=== PATIENT | male | born 1965 | race Caucasian/White ===

== ENCOUNTER 2019-09-22 03:49 | Emergency (ER) | payer BC ==
[~2019-09-22] VITALS: Ht 177.8 cm; Wt 102.1 kg
[~2019-09-22 03:49] MED LIST: PREDNISONE20 M1 PO
[2019-09-22] MEDS ORDERED: Tobrex Ophth S2.5 ML OPH (04:35)
== END 2019-09-22 04:51 | disposition home or self-care (01) ==
LOC: ED 03:49
DX: H10.13 Acute atopic conjunctivitis, bilateral (principal); Z79.899 Other long term (current) drug therapy

== ENCOUNTER 2022-08-09 05:22 | Emergency (ER) | payer BC ==
[~2022-08-09] VITALS: Ht 177.8 cm; Wt 99.8 kg
[~2022-08-09 05:22] MED LIST changes: +Tobrex Ophth S2.5 ML OPH
[2022-08-09 05:59] LABS: BASO % 0.6 % (0.0-1.0); EOS # 0.1 10*3/uL (0.0-0.4); EOS % 1.6 % (1.0-4.0); LYMPH # 2.6 10*3/uL (1.3-4.4); LYMPH % 38.7 % (27.0-41.0); MEAN CELL VOLUME 87.8 fl (80.0-94.0); MEAN CORPUSCULAR HGB 31.1 pg (27.0-31.0); MEAN CORPUSCULAR HGB CONC 35.4 g/dl (33.0-37.0); MEAN PLATELET VOLUME 9.3 fl (9.6-12.3); MONO # 0.6 10*3/uL (0.1-1.0); NEUT # 3.3 10*3/uL (2.3-7.9); NEUT % 49.1 % (47.0-73.0); PLATELET COUNT AUTOMATED 282 10*3/uL (130-400); RED BLOOD COUNT 4.44 10*6/uL (4.50-5.90); RED CELL DISTRI WIDTH 12.1 % (0-14.5); WHITE BLOOD COUNT 6.8 10*3/uL (4.8-10.8)
[2022-08-09 06:00] LABS: BILIRUBIN Negative (Negative); BLOOD 2+ (Negative); CLARITY Clear (Clear); COLOR Yellow (Yellow); GLUCOSE 3+ (Negative); KETONE Trace (Negative); LEUKO ESTERASE Negative (Negative); NITRITE Negative (Negative); SPECIFIC GRAVITY >= 1.030 (1.001-1.030)
[2022-08-09 06:08] LABS: BUN 13 mg/dl (7-24); CHLORIDE 104 mmol/L (98-107); CREATININE 1.06 mg/dL (0.70-1.30); POTASSIUM 3.4 mmol/L (3.5-5.1); SODIUM 139 mmol/L (136-145)
[2022-08-09 06:15] LABS: BACTERIA TRACE; EPITHELIAL CELLS 0-2; MUCOUS 1+
[2022-08-09] MEDS ORDERED: FLOMAX0.4 MG PO (11:11)
[2022-08-09] MEDS ORDERED: ONDANSETRON4 MG SL (11:11)
[2022-08-09] MEDS ORDERED: Motrin,Rufen800 MG PO (11:11)
== END 2022-08-09 11:22 | disposition home or self-care (01) ==
LOC: ED 05:22
PROVIDERS: Emergency Medicine
DX: N13.2 Hydronephrosis with renal and ureteral calculous obstruction (principal); E11.9 Type 2 diabetes mellitus without complications; I10 Essential (primary) hypertension